=== PATIENT | female | born 1945 | race Caucasian/White ===

== ENCOUNTER 2017-08-12 12:29 | Observation (INO) | payer BC, OTHER ==
[2017-08-12] VITALS (11 sets, daily range): BP systolic 160–228; BP diastolic 77–102; PULSE 64–80; RESP 16–20; TEMP 98–98.7; O2SAT 95–98
[~2017-08-12] VITALS: Ht 167.6 cm; Wt 87.0 kg
[~2017-08-12 12:29] MED LIST: ESTR1 PO; TAB-TAB PO; TOPR50TA PO
[2017-08-12] MEDS ORDERED: LEVE500T8 PO (12:47)
--- NOTE | 2017-08-12 12:53 | PD ---
HPI Chief Complaint: Chest Pain Time Seen by Provider: 12:39 Travel History International Travel<30 days: No Contact w/Intl Traveler<30days: No Traveled to known affect area: No History of Present Illness HPI The patient is a 72-year-old female who presents to the emergency department via private vehicle for shortness of breath and chest pain. The patient notes a 3 day history of shortness of breath with a occasionally productive cough producing yellow to green sputum. She also complains of anterior chest pain, states it feels heavy like there are cinderblocks sitting on her chest. The patient does have a history of bronchitis, was diagnosed recently with COPD, with similar shortness of breath in the past. However, she states the chest pain is new. The patient does have a history of hypertension and hyperlipidemia, denies any known history of coronary artery disease. She does have a remote history of smoking, quit 16 years ago. She denies any history of diabetes. She does have a history of amyloid angiopathy. Symptoms are moderate. The patient does take cholesterol medications, states she is allergic to statins, Niaspan, and aspirin. Patient states she developed hives with aspirin. The patient's primary physician is located in [place], [place]. The patient does have a history of previous stress test, however, those were performed years ago. She denies any recent stress test or cardiac catheterizations. PFSH Past Medical History COPD: Yes Diminished Hearing: No Hypertension: Yes Seizures: Yes Influenza Vaccination: Yes Past Surgical History Genitourinary Surgery: Yes (bladder lift) Hysterectomy: Yes Tonsillectomy: Yes Social History Alcohol Use: Yes (OCC) Tobacco Use: No (quit 16 years ago) Substance Use: No Allergies-Medications (Allergen,Severity, Reaction): Coded Allergies: aspirin (Unverified Allergy, Severe, Hives, 08/12/17) penicillin G (Unverified Allergy, Severe, Hives, 08/12/17) simvastatin (Unverified Allergy, Severe, RASH,HIVES, 08/12/17) ALONG WITH SOME OTHER BLOOD PRESSURE MEDICATION Uncoded Allergies: NIASPAN (Allergy, Severe, RASH, 04/09/09) statins (Allergy, Severe, other, 08/12/17) Red rash, hair falls out Reported Meds & Prescriptions Reported Meds & Active Scripts Active Reported Levetiracetam 500 Mg Tab 500 Mg PO BID Multivitamin (Multivitamins) 1 Tab Tab 1 Tab PO DAILY Toprol Xl (Metoprolol Succinate) 50 Mg Tabcr 50 Mg PO DAILY Estrace (Estradiol) 1 Mg Tab 1 Mg PO DAILY Review of Systems Except as stated in HPI: all other systems reviewed are Neg General / Constitutional: No: Fever, Chills HENT: No: Lightheadedness Cardiovascular: Positive: Chest Pain or Discomfort, Diaphoresis, Dyspnea on exertion Respiratory: Positive: Cough, Shortness of Breath Gastrointestinal: Positive: Nausea, No: Vomiting, Abdominal Pain Musculoskeletal: No: Edema Neurologic: No: Dizziness Physical Exam Narrative GENERAL: Awake, alert, pleasant 72-year-old female who appears her stated age and is in no acute respiratory distress. SKIN: Focused skin assessment warm/dry. HEAD: Atraumatic. Normocephalic. EYES: Pupils equal and round. No scleral icterus. No injection or drainage. ENT: No nasal bleeding or discharge. Mucous membranes pink and moist. NECK: Trachea midline. No JVD. CARDIOVASCULAR: Regular rate and rhythm. No murmur appreciated. Heart rate in the 70s. RESPIRATORY: No accessory muscle use. Few expiratory crackles. GASTROINTESTINAL: Abdomen soft, non-tender, nondistended. MUSCULOSKELETAL: No obvious deformities. No clubbing. No cyanosis. No edema. NEUROLOGICAL: Awake and alert. No obvious cranial nerve deficits. Motor grossly within normal limits. Normal speech. PSYCHIATRIC: Appropriate mood and affect; insight and judgment normal. Data Data Last Documented VS Vital Signs Date Time Temp Pulse Resp B/P (MAP) Pulse Ox O2 Delivery O2 Flow Rate FiO2 08/12/17 13:17 98 Room Air 08/12/17 13:17 18 08/12/17 12:52 64 08/12/17 12:33 98.0 Orders Orders Electrocardiogram (08/12/17 12:48) Ckmb (Isoenzyme) Profile (08/12/17 12:48) Complete Blood Count With Diff (08/12/17 12:48) Comprehensive Metabolic Panel (08/12/17 12:48) Magnesium (Mg) (08/12/17 12:48) Prothrombin Time / Inr (Pt) (08/12/17 12:48) Act Partial Throm Time (Ptt) (08/12/17 12:48) Troponin I (08/12/17 12:48) Lipase (08/12/17 12:48) Ecg Monitoring (08/12/17 12:48) Bilateral Bp Monitoring (08/12/17 12:48) Iv Access Insert/Monitor (08/12/17 12:48) Oximetry (08/12/17 12:48) Oxygen Administration (08/12/17 12:48) Morphine Inj (Morphine Inj) (08/12/17 13:00) Nitroglycerin 2% Oint (Nitroglycerin 2% (08/12/17 13:00) Sodium Chloride 0.9% Flush (Ns Flush) (08/12/17 13:00) Nitroglycerin Sl (Nitrostat Sl) (08/12/17 13:00) Sodium Chlorid 0.9% 500 Ml Inj (Ns 500 M (08/12/17 13:00) Chest, Pa & Lat (08/12/17 12:48) Ondansetron Odt (Zofran Odt) (08/12/17 13:00) Labs Laboratory Tests Test 08/12/17 12:55 White Blood Count 3.4 TH/MM3 Red Blood Count 4.99 MIL/MM3 Hemoglobin 15.1 GM/DL Hematocrit 43.7 % Mean Corpuscular Volume 87.5 FL Mean Corpuscular Hemoglobin 30.2 PG Mean Corpuscular Hemoglobin Concent 34.5 % Red Cell Distribution Width 13.5 % Platelet Count 141 TH/MM3 Mean Platelet Volume 9.6 FL Neutrophils (%) (Auto) 58.0 % Lymphocytes (%) (Auto) 23.8 % Monocytes (%) (Auto) 17.1 % Eosinophils (%) (Auto) 0.5 % Basophils (%) (Auto) 0.6 % Neutrophils # (Auto) 2.0 TH/MM3 Lymphocytes # (Auto) 0.8 TH/MM3 Monocytes # (Auto) 0.6 TH/MM3 Eosinophils # (Auto) 0.0 TH/MM3 Basophils # (Auto) 0.0 TH/MM3 CBC Comment DIFF FINAL Differential Comment Prothrombin Time 10.2 SEC Prothromb Time International Ratio 1.0 RATIO Activated Partial Thromboplast Time 25.9 SEC Blood Urea Nitrogen 12 MG/DL Creatinine 0.69 MG/DL Random Glucose 90 MG/DL Total Protein 7.7 GM/DL Albumin 4.0 GM/DL Calcium Level 9.0 MG/DL Magnesium Level 1.9 MG/DL Alkaline Phosphatase 62 U/L Aspartate Amino Transf (AST/SGOT) 11 U/L Alanine Aminotransferase (ALT/SGPT) 14 U/L Total Bilirubin 0.4 MG/DL Sodium Level 138 MEQ/L Potassium Level 4.1 MEQ/L Chloride Level 101 MEQ/L Carbon Dioxide Level 29.4 MEQ/L Anion Gap 8 MEQ/L Estimat Glomerular Filtration Rate 84 ML/MIN Total Creatine Kinase 44 U/L Troponin I LESS THAN 0.02 NG/ML Lipase 211 U/L MDM Medical Decision Making Medical Screen Exam Complete: Yes Emergency Medical Condition: Yes Medical Record Reviewed: Yes Interpretation(s) EKG reveals normal sinus rhythm with a rate of 65. Inverted T-wave in lead III. Laboratory Tests Test 08/12/17 12:55 White Blood Count 3.4 TH/MM3 Red Blood Count 4.99 MIL/MM3 Hemoglobin 15.1 GM/DL Hematocrit 43.7 % Mean Corpuscular Volume 87.5 FL Mean Corpuscular Hemoglobin 30.2 PG Mean Corpuscular Hemoglobin Concent 34.5 % Red Cell Distribution Width 13.5 % Platelet Count 141 TH/MM3 Mean Platelet Volume 9.6 FL Neutrophils (%) (Auto) 58.0 % Lymphocytes (%) (Auto) 23.8 % Monocytes (%) (Auto) 17.1 % Eosinophils (%) (Auto) 0.5 % Basophils (%) (Auto) 0.6 % Neutrophils # (Auto) 2.0 TH/MM3 Lymphocytes # (Auto) 0.8 TH/MM3 Monocytes # (Auto) 0.6 TH/MM3 Eosinophils # (Auto) 0.0 TH/MM3 Basophils # (Auto) 0.0 TH/MM3 CBC Comment DIFF FINAL Differential Comment Prothrombin Time 10.2 SEC Prothromb Time International Ratio 1.0 RATIO Activated Partial Thromboplast Time 25.9 SEC Blood Urea Nitrogen 12 MG/DL Creatinine 0.69 MG/DL Random Glucose 90 MG/DL Total Protein 7.7 GM/DL Albumin 4.0 GM/DL Calcium Level 9.0 MG/DL Magnesium Level 1.9 MG/DL Alkaline Phosphatase 62 U/L Aspartate Amino Transf (AST/SGOT) 11 U/L Alanine Aminotransferase (ALT/SGPT) 14 U/L Total Bilirubin 0.4 MG/DL Sodium Level 138 MEQ/L Potassium Level 4.1 MEQ/L Chloride Level 101 MEQ/L Carbon Dioxide Level 29.4 MEQ/L Anion Gap 8 MEQ/L Estimat Glomerular Filtration Rate 84 ML/MIN Total Creatine Kinase 44 U/L Troponin I LESS THAN 0.02 NG/ML Lipase 211 U/L Differential Diagnosis Differential diagnosis includes acute coronary syndrome, aortic dissection, pulmonary embolism, pericarditis, myocarditis, esophageal spasm, GERD, pneumonia , bronchitis. Narrative Course IV was established, labs are drawn and sent, and the patient was placed on cardiac telemetry monitoring and continuous pulse oximetry monitoring. EKG was ordered and interpreted. Chest x-ray was obtained. Aspirin was held as the patient does have a history of allergies to aspirin with hives. The patient was administered one nitroglycerin sublingual and then placed on Nitropaste. The patient also was administered morphine and Zofran. The patient's initial troponin was less than 0.02. Chest x-ray is unremarkable. The patient does have a history of COPD but has no significant wheezing currently and the chest pressure is new over the last 3 days. The patient does have risk factors including age, hypertension, and hyperlipidemia. Therefore, patient will be a 23 hour observation to the chest pain center for serial cardiac enzymes and further evaluation by cardiology. Patient may benefit from stress test, if stress test is negative the patient may benefit from outpatient follow-up with pulmonology. The patient agrees and understands. Physician Communication Physician Communication The patient will be a 23 hour observation to the chest pain center for serial cardiac enzymes and further evaluation by cardiology. Diagnosis Primary Impression: Chest pain Qualified Codes: R07.9 - Chest pain, unspecified Admitting Information Admitting Physician Requests: Observation Condition: Stable Claude Pat MD Aug 12, 2017 12:53
[2017-08-12] MEDS ORDERED: MORPHINE SULFATE 4 MG/ML INJ IV PUSH ONE (13:00)
[2017-08-12] MEDS ORDERED: NITROGLYCERIN 0.4 MG SL 25 TABS/BTL SL ONE (13:00)
[2017-08-12] MEDS ORDERED: SODIUM CHLORID 0.9% 500 ML INJ 500 ML IV ONE (13:00)
[2017-08-12] MEDS ORDERED: ONDANSETRON ODT 4 MG TAB PO ONE (13:00)
[2017-08-12] MEDS ORDERED: SODIUM CHLORIDE 0.9% FLUSH 10 ML FLUSH IVF PRN (13:00)
[2017-08-12] MEDS ORDERED: NITROGLYCERIN 2% OINT 1 GM PACKET TOP ONE (13:00)
[2017-08-12 13:15] LABS: BASOPHIL % 0.6 % (0.0-2.0); EOSINOPHIL % 0.5 % (0.0-4.0); HEMATOCRIT 43.7 % (35.0-46.0); HEMOGLOBIN 15.1 GM/DL (11.6-15.3); LYMPH % 23.8 % (9.0-44.0); LYMPHOCYTE # 0.8 TH/MM3 (1.0-4.8); MEAN CELL VOLUME 87.5 FL (80.0-100.0); MEAN CORPUSCULAR HEMOGLOBIN 30.2 PG (27.0-34.0); MEAN CORPUSCULAR HGB CONC 34.5 % (32.0-36.0); MEAN PLATELET VOLUME 9.6 FL (7.0-11.0); MONO % 17.1 % (0.0-8.0); MONOCYTE # 0.6 TH/MM3 (0-0.9); PLATELET COUNT 141 TH/MM3 (150-450); RED BLOOD COUNT 4.99 MIL/MM3 (4.00-5.30); RED CELL DISTRIBUTION WIDTH 13.5 % (11.6-17.2); WHITE BLOOD COUNT 3.4 TH/MM3 (4.0-11.0)
[2017-08-12 13:25] LABS: PROTHROMBIN TIME - PATIENT 10.2 SEC (9.8-11.6)
[2017-08-12 13:36] LABS: ALT (GPT) 14 U/L (10-53); AST (GOT) 11 U/L (15-37); BICARBONATE 29.4 MEQ/L (21.0-32.0); BLOOD UREA NITROGEN 12 MG/DL (7-18); CHLORIDE 101 MEQ/L (98-107); CREATININE 0.69 MG/DL (0.50-1.00); GLOMERULAR FILTRATION RATE 84 ML/MIN (>89); GLUCOSE,RANDOM 90 MG/DL (74-106); MAGNESIUM 1.9 MG/DL (1.5-2.5); SODIUM (NA) 138 MEQ/L (136-145)
[2017-08-12 13:40] LABS: ALKALINE PHOSPHATASE 62 U/L (45-117); TOTAL BILIRUBIN ADULT 0.4 MG/DL (0.2-1.0); TOTAL PROTEIN 7.7 GM/DL (6.4-8.2); TROPONIN I LESS THAN 0.02 NG/ML (0.02-0.05)
--- NOTE | 2017-08-12 14:18 | RADRPT ---
EXAM DATE: 08/12/2017 2:10 PM EDT AGE/SEX: 72 years / Female INDICATIONS: Sporadic coughing episodes for three months with chest pain and pressure midline for tw o days. CLINICAL DATA: This is the patient's initial encounter. Patient reports that signs and symptoms have been present for 2 days and indicates a pain score of 6/10. MEDICAL/SURGICAL HISTORY: None. None. COMPARISON: No prior exams available for comparison. FINDINGS: PA and lateral views of the chest demonstrate the lungs to be symmetrically aerated without evidence of mass, infiltrate or effusion. Mildly tortuous aorta. CONCLUSION: No active disease. Electronically signed by: Marlon Lou MD 08/12/2017 2:17 PM EDT
[2017-08-12] MEDS ORDERED: NITROGLYCERIN 0.4 MG SL 25 TABS/BTL SL PRN (15:30)
[2017-08-12] MEDS ORDERED: ONDANSETRON ODT 4 MG TAB PO PRN (15:30)
[2017-08-12] MEDS ORDERED: ACETAMINOPHEN 500 MG CPLT PO PRN (15:30)
--- NOTE | 2017-08-12 16:03 | HHI.HP ---
HPI Primary Care Physician Dr. Melvin Chief Complaint Chest pressure History of Present Illness 72 year old female with history of retention and hyperlipidemia (statin intolerant) presents the emergency room for further evaluation of chest pressure and cough. Onset 3 days. Location substernal. Characterizes pressure. No radiation. Bilateral jaw and left upper arm discomfort intermittently. Duration constant waxing and waning in intensity. Associated symptoms of dyspnea, headache, and diaphoresis. Denies nausea or vomiting. No precipitating or relieving factors. Endorses feeling "exhausted and winded" walking short distances last 3 days. Productive cough x3 days. Over the last 2 months treated twice with antibiotics and steroids for the same cough. Did not experience chest pressure with past infections, therefore came to ER for further evaluation. Review of Systems General: No fatigue, weakness, fever, chills, or recent illness change. Treated twice with antibiotics and steroids over the last 2 months. Cough improved, returned 3 days ago. Follow appointment with her PCP 5 days and felt fine. HEENT: No FITZPATRICK, no vision changes, no nasal congestion or drainage, no dysphasia, no history of GERD CV: As stated above, continues to have chest pressure currently "mild." Experience "heart pounding" last week. She notified her PCP and is set up to wear a Holter monitor. RESP: Exertional dyspnea walking short distances. Productive cough x3 days, intermittent wheezing. History of "mild COPD." GI: No nausea, vomiting, bowel changes, diarrhea, constipation, pain, distention , melena, or blood in the stool. No unintentional weight gain or weight loss. : No dysuria, urgency, frequency EXT: No lower leg edema, no paraesthesias MS: No discomfort injury, or change in ROM NEURO: Follows with a neurologist, diagnosed with amyloid angiopathy, no change in memory, difficulty with balance, LOC, motor/sensory deficits PSYCH: No anxiety, depression, or suicidal ideation SKIN: No rashes, no concerning lesions Past Family Social History Allergies: Coded Allergies: aspirin (Unverified Allergy, Severe, Hives, 08/12/17) penicillin G (Unverified Allergy, Severe, Hives, 08/12/17) simvastatin (Unverified Allergy, Severe, RASH,HIVES, 08/12/17) ALONG WITH SOME OTHER BLOOD PRESSURE MEDICATION Uncoded Allergies: NIASPAN (Allergy, Severe, RASH, 04/09/09) statins (Allergy, Severe, other, 08/12/17) Red rash, hair falls out Past Medical History Hypertension, hyperlipidemia, COPD, amyloid angiopathy Past Surgical History Hysterectomy, bladder suspension Reported Medications Reported Meds & Active Scripts Active Reported Levetiracetam 500 Mg Tab 500 Mg PO BID Multivitamin (Multivitamins) 1 Tab Tab 1 Tab PO DAILY Toprol Xl (Metoprolol Succinate) 50 Mg Tabcr 50 Mg PO DAILY Estrace (Estradiol) 1 Mg Tab 1 Mg PO DAILY Active Ordered Medications Current Medications Medications (Trade) Dose Ordered Sig/Karlee Route Start Time Stop Time Status Last Admin (NS Flush) 2 ml UNSCH PRN IVF 08/12/17 13:00 08/12/17 13:01 (NS Flush) 2 ml BID IV FLUSH 08/12/17 21:00 (Tylenol) 500 mg Q4H PRN PO 08/12/17 15:30 (Nitrostat Sl) 0.4 mg Q5M PRN SL 08/12/17 15:30 (Zofran Odt) 4 mg Q6H PRN PO 08/12/17 15:30 Family History Noncontributory for early onset cardiovascular disease Social History No known coronary artery disease or diabetes. Known hypertension and hyperlipidemia, unfortunately she is statin intolerant. Former 2 pack/day smoker, quit 15 years ago. Denies any alcohol use. . Retired. Works part-time lifestyle. Past cardiac test Remote stress testing reported be unremarkable. Never required cardiac catheterization. Physical Exam Vital Signs Vital Signs Date Time Temp Pulse Resp B/P (MAP) Pulse Ox O2 Delivery O2 Flow Rate FiO2 08/12/17 13:30 66 17 167/78 (107) 95 Room Air 08/12/17 13:17 98 Room Air 08/12/17 13:17 18 98 Room Air 08/12/17 13:16 98 Room Air 08/12/17 12:52 64 18 228/99 (142) 96 Room Air 08/12/17 12:33 98.0 70 18 222/102 (142) 97 213/93 (133) Physical Exam GENERAL: Alert WN, WD, NAD, pleasant, obese, female HEAD: NC, AT EYES: Sclera clear, conjunctiva without injection, pupils equal and round ENT: Mucous membranes pink and moist CV: RRR, without murmur, rub, gallop, no JVD, S1-S2 no S3-S4. No carotid bruits. Chest wall nontender with palpation. RESP: Clear lungs throughout bilateral, no crackles, wheeze, rhonchi, symmetrical chest rise, nonlabored, able to speak in full sentences ABD: Soft, NT, ND, no masses, positive bowel tones EXT: Pulses +2x4, no dependent edema MS: Normal tone x4 extremities, no obvious deformities, full range of motion NEURO: CN II through CN XII grossly intact, motor strength 5/5 PSYCH: A+O x3, pleasant affect, appropriate speech, mood, insight and judgment SKIN: Normal turgor, normal texture, no lesions, no rashes, brisk cap refill, even hair distribution Laboratory Laboratory Tests Test 08/12/17 12:55 White Blood Count 3.4 Red Blood Count 4.99 Hemoglobin 15.1 Hematocrit 43.7 Mean Corpuscular Volume 87.5 Mean Corpuscular Hemoglobin 30.2 Mean Corpuscular Hemoglobin Concent 34.5 Red Cell Distribution Width 13.5 Platelet Count 141 Mean Platelet Volume 9.6 Neutrophils (%) (Auto) 58.0 Lymphocytes (%) (Auto) 23.8 Monocytes (%) (Auto) 17.1 Eosinophils (%) (Auto) 0.5 Basophils (%) (Auto) 0.6 Neutrophils # (Auto) 2.0 Lymphocytes # (Auto) 0.8 Monocytes # (Auto) 0.6 Eosinophils # (Auto) 0.0 Basophils # (Auto) 0.0 CBC Comment DIFF FINAL Differential Comment Prothrombin Time 10.2 Prothromb Time International Ratio 1.0 Activated Partial Thromboplast Time 25.9 Blood Urea Nitrogen 12 Creatinine 0.69 Random Glucose 90 Total Protein 7.7 Albumin 4.0 Calcium Level 9.0 Magnesium Level 1.9 Alkaline Phosphatase 62 Aspartate Amino Transf (AST/SGOT) 11 Alanine Aminotransferase (ALT/SGPT) 14 Total Bilirubin 0.4 Sodium Level 138 Potassium Level 4.1 Chloride Level 101 Carbon Dioxide Level 29.4 Anion Gap 8 Estimat Glomerular Filtration Rate 84 Total Creatine Kinase 44 Troponin I LESS THAN 0.02 Lipase 211 Result Diagram: 08/12/17 1255 08/12/17 1255 Imaging Last 48 hours Impressions Chest X-Ray 08/12/17 1248 Signed Impressions: CONCLUSION: No active disease. Course EKG NSR, normal axis, no st t segment changes Caprini VTE Risk Assessment Caprini VTE Risk Assessment: Mod/High Risk (score >= 2) Caprini Risk Assessment Model Point Value = 1 Point Value = 2 Point Value = 3 Point Value = 5 Age 41-60 Minor surgery BMI > 25 kg/m2 Swollen legs Varicose veins or History of unexplained or recurrent spontaneous Oral contraceptives or hormone replacement Sepsis (< 1 month) Serious lung disease, including pneumonia (< 1 month) Abnormal pulmonary function Acute myocardial infarction Congestive heart failure (< 1 month) History of inflammatory bowel disease Medical patient at bed rest Age 61-74 Arthroscopic surgery Major open surgery (> 45 min) Laparoscopic surgery (> 45 min) Malignancy Confined to bed (> 72 hours) Immobilizing plaster cast Central venous access Age >= 75 History of VTE Family history of VTE Factor V Leiden Prothrombin [id number] Lupus anticoagulant Anticardiolipin antibodies Elevated serum homocysteine Heparin-induced thrombocytopenia Other congenital or acquired thrombophilia Stroke (< 1 month) Elective arthroplasty Hip, pelvis, or leg fracture Acute spinal cord injury (< 1 month) Prophylaxis Regimen Total Risk Factor Score Risk Level Prophylaxis Regimen 0-1 Low Early ambulation 2 Moderate Order ONE of the following: *Sequential Compression Device (SCD) *Heparin 5000 units SQ BID 3-4 Higher Order ONE of the following medications: *Heparin 5000 units SQ TID *Enoxaparin/Lovenox 40 mg SQ daily (WT < 150 kg, CrCl > 30 mL/min) *Enoxaparin/Lovenox 30 mg SQ daily (WT < 150 kg, CrCl > 10-29 mL/min) *Enoxaparin/Lovenox 30 mg SQ BID (WT < 150 kg, CrCl > 30 mL/min) AND/OR *Sequential Compression Device (SCD) 5 or more Highest Order ONE of the following medications: *Heparin 5000 units SQ TID (Preferred with Epidurals) *Enoxaparin/Lovenox 40 mg SQ daily (WT < 150 kg, CrCl > 30 mL/min) *Enoxaparin/Lovenox 30 mg SQ daily (WT < 150 kg, CrCl > 10-29 mL/min) *Enoxaparin/Lovenox 30 mg SQ BID (WT < 150 kg, CrCl > 30 mL/min) AND *Sequential Compression Device (SCD) Assessment and Plan Assessment and Plan #1 Atypical chest pain-admitted to chest pain center. Rule out ACS with 3 sets of EKGs and cardiac enzymes. Monitor on telemetry overnight. Will be seen and evaluated by Dr. Michael Saxena. Discussed likely chemical stress test in a.m. ACS if ruled out. Patient agreeable plan of care and verbalizes understanding. #2 History of amyloid angiopathy-continue levetiracetam #3 History of hypertension-continue Metoprolol Michelle Rosado Aug 12, 2017 16:03
[2017-08-12 16:53] LABS: TROPONIN I LESS THAN 0.02 NG/ML (0.02-0.05)
[2017-08-12] MEDS ORDERED: HUMIBIDDM PO (17:57)
[2017-08-12] MEDS ORDERED: ESTR1TAB PO (17:57)
[2017-08-12] MEDS ORDERED: NO ITAB PO (17:57)
[2017-08-12] MEDS ORDERED: METO-488 PO (17:57)
[2017-08-12] MEDS: SODIUM CHLORIDE 0.9% FLUSH 10 ML FLUSH IV FLUSH SCH (19:52)
[2017-08-12] MEDS: guaiFENesin E.R. 600 MG TAB PO SCH (19:52)
[2017-08-12] MEDS: levETIRAcetam 500 MG TAB PO SCH (19:52)
[2017-08-12] MEDS: BENZONATATE 100 MG CAP PO PRN (19:52)
[2017-08-12] MEDS ORDERED: cloNIDine HCL 0.1 MG TAB PO PRN (21:00)
[2017-08-12] MEDS ORDERED: METO50TA PO (21:07)
[2017-08-12 21:24] LABS: TROPONIN I LESS THAN 0.02 NG/ML (0.02-0.05)
[2017-08-12] MEDS: METOPROLOL TARTRATE 50 MG TAB PO SCH (22:49)
[2017-08-13] VITALS (13 sets, daily range): BP systolic 122–186; BP diastolic 67–91; PULSE 60–163; RESP 16–24; TEMP 98–98.9; O2SAT 94–97
[2017-08-13] MEDS ORDERED: amLODIPine BESYLATE 5 MG TAB PO ONE (07:15)
--- NOTE | 2017-08-13 08:25 | PD.CARD.PN ---
Subjective Subjective Remarks 72-year-old lady with a complex history of cough and shortness of breath going back over several months she has been followed by her primary care physician treated with antibiotics and steroids and different combinations with no good resolution. Since arriving in the emergency room she has developed a new component of her chest pain described as somewhat like labor pains in that it comes and goes in waves lasting only about 3 minutes but quite severe during the episodes. These have not been associated with EKG changes. She also is hypertensive but this is been better controlled during her admission. She is been previously followed by [facility] but is unsure exactly why that was she had a nuclear stress test but this is a number of years back. Otherwise I am in agreement with the history is documented Patient was reviewed and discussed with nurse practitioner she was seen and examined personally. Objective Medications Current Medications Medications (Trade) Dose Ordered Sig/Karlee Route Start Time Stop Time Status Last Admin (NS Flush) 2 ml UNSCH PRN IVF 08/12/17 13:00 08/12/17 13:01 (NS Flush) 2 ml BID IV FLUSH 08/12/17 21:00 08/12/17 19:52 (Tylenol) 500 mg Q4H PRN PO 08/12/17 15:30 08/12/17 19:52 (Nitrostat Sl) 0.4 mg Q5M PRN SL 08/12/17 15:30 (Zofran Odt) 4 mg Q6H PRN PO 08/12/17 15:30 (Keppra) 500 mg BID PO 08/12/17 21:00 08/12/17 19:52 (Mucinex Er) 600 mg BID PO 08/12/17 21:00 08/12/17 19:52 (Tessalon) 100 mg TID PRN PO 08/12/17 18:45 08/12/17 19:52 (Catapres) 0.1 mg Q6H PRN PO 08/12/17 21:00 (Lopressor) 50 mg BID PO 08/12/17 21:00 08/12/17 22:49 Vital Signs / I&O Vital Signs Date Time Temp Pulse Resp B/P (MAP) Pulse Ox O2 Delivery O2 Flow Rate FiO2 08/13/17 07:31 94 21 08/13/17 07:03 65 08/13/17 04:08 98.6 65 16 186/84 (118) 97 08/13/17 03:35 60 08/13/17 00:44 21 08/13/17 00:02 77 08/12/17 23:36 98.7 64 16 164/82 (109) 95 Manual Cuff/Auscultation 08/12/17 20:58 18 08/12/17 20:02 80 08/12/17 19:49 162/80 (107) 08/12/17 19:14 98.3 74 16 185/77 (113) 95 08/12/17 17:07 Manual Cuff/Auscultation 08/12/17 16:47 160/78 (105) 08/12/17 16:37 74 08/12/17 16:00 98.6 68 20 190/78 (115) 95 08/12/17 13:30 66 17 167/78 (107) 95 Room Air 08/12/17 13:17 98 Room Air 08/12/17 13:17 18 98 Room Air 08/12/17 13:16 98 Room Air 08/12/17 12:52 64 18 228/99 (142) 96 Room Air 08/12/17 12:33 98.0 70 18 222/102 (142) 97 213/93 (133) I/O 08/12/17 08/12/17 08/12/17 08/13/17 08/13/17 08/13/17 07:00 15:00 23:00 07:00 15:00 23:00 # Voids 1 Physical Exam Obese lady having an episode of pain at the time I saw. Systolic blood pressure was 140 and her monitor showed no acute changes. Line neck supple no JVD masses nodes or bruits Chest markedly diminished breath sounds with both inspiratory and expiratory wheezes Cardiovascular PMI was not palpable rhythm was regular no gallops rubs or murmurs were noted Laboratory Laboratory Tests Test 08/12/17 12:55 08/12/17 16:10 08/12/17 19:00 White Blood Count 3.4 TH/MM3 Red Blood Count 4.99 MIL/MM3 Hemoglobin 15.1 GM/DL Hematocrit 43.7 % Mean Corpuscular Volume 87.5 FL Mean Corpuscular Hemoglobin 30.2 PG Mean Corpuscular Hemoglobin Concent 34.5 % Red Cell Distribution Width 13.5 % Platelet Count 141 TH/MM3 Mean Platelet Volume 9.6 FL Neutrophils (%) (Auto) 58.0 % Lymphocytes (%) (Auto) 23.8 % Monocytes (%) (Auto) 17.1 % Eosinophils (%) (Auto) 0.5 % Basophils (%) (Auto) 0.6 % Neutrophils # (Auto) 2.0 TH/MM3 Lymphocytes # (Auto) 0.8 TH/MM3 Monocytes # (Auto) 0.6 TH/MM3 Eosinophils # (Auto) 0.0 TH/MM3 Basophils # (Auto) 0.0 TH/MM3 CBC Comment DIFF FINAL Differential Comment Prothrombin Time 10.2 SEC Prothromb Time International Ratio 1.0 RATIO Activated Partial Thromboplast Time 25.9 SEC Blood Urea Nitrogen 12 MG/DL Creatinine 0.69 MG/DL Random Glucose 90 MG/DL Total Protein 7.7 GM/DL Albumin 4.0 GM/DL Calcium Level 9.0 MG/DL Magnesium Level 1.9 MG/DL Alkaline Phosphatase 62 U/L Aspartate Amino Transf (AST/SGOT) 11 U/L Alanine Aminotransferase (ALT/SGPT) 14 U/L Total Bilirubin 0.4 MG/DL Sodium Level 138 MEQ/L Potassium Level 4.1 MEQ/L Chloride Level 101 MEQ/L Carbon Dioxide Level 29.4 MEQ/L Anion Gap 8 MEQ/L Estimat Glomerular Filtration Rate 84 ML/MIN Total Creatine Kinase 44 U/L 40 U/L 53 U/L Troponin I LESS THAN 0.02 NG/ML LESS THAN 0.02 NG/ML LESS THAN 0.02 NG/ML Lipase 211 U/L Imaging Last 24 hours Impressions Chest X-Ray 08/12/17 1248 Signed Impressions: CONCLUSION: No active disease. Assessment and Plan Assessment and Plan Patient will be ruled out for ACS and when negative will obtain a nuclear stress test. She was also instructed post discharge to request follow-up with a gas attendant in addition to her primary care physician. Code Status Full code Discussed Condition With Discussed with nurse practitioner in the patient Michael Saxena MD Aug 13, 2017 08:25
[2017-08-13] MEDS: SODIUM CHLORIDE 0.9% FLUSH 10 ML FLUSH IV FLUSH SCH ×2 (08:26→20:17)
[2017-08-13] MEDS: levETIRAcetam 500 MG TAB PO SCH ×2 (08:26→20:17)
[2017-08-13] MEDS: guaiFENesin E.R. 600 MG TAB PO SCH ×2 (08:29→20:17)
[2017-08-13] MEDS ORDERED: REGADENOSON INJ 0.4 MG/5 ML SYR IV ONE (11:51)
[2017-08-13] MEDS: METOPROLOL TARTRATE 50 MG TAB PO SCH ×2 (13:10→20:17)
--- NOTE | 2017-08-13 13:36 | PD.CARD.PN ---
Subjective Subjective Remarks Notified by RN patient's heart rate elevated upon returning from [place]where. Monitor heart rate 120-140s. Requested EKG, telemetry appears to be atrial fibrillation rate 150s. Patient ambulating in ch, no acute distress prior to EKG completed. No complaints, chest pain, or dizziness. Objective Medications Current Medications Medications (Trade) Dose Ordered Sig/Karlee Route Start Time Stop Time Status Last Admin (NS Flush) 2 ml UNSCH PRN IVF 08/12/17 13:00 08/12/17 13:01 (NS Flush) 2 ml BID IV FLUSH 08/12/17 21:00 08/13/17 08:26 (Tylenol) 500 mg Q4H PRN PO 08/12/17 15:30 08/12/17 19:52 (Nitrostat Sl) 0.4 mg Q5M PRN SL 08/12/17 15:30 (Zofran Odt) 4 mg Q6H PRN PO 08/12/17 15:30 (Keppra) 500 mg BID PO 08/12/17 21:00 08/13/17 08:26 (Mucinex Er) 600 mg BID PO 08/12/17 21:00 08/13/17 08:29 (Tessalon) 100 mg TID PRN PO 08/12/17 18:45 08/12/17 19:52 (Catapres) 0.1 mg Q6H PRN PO 08/12/17 21:00 (Lopressor) 50 mg BID PO 08/12/17 21:00 08/13/17 13:10 Vital Signs / I&O Vital Signs Date Time Temp Pulse Resp B/P (MAP) Pulse Ox O2 Delivery O2 Flow Rate FiO2 08/13/17 13:26 153 18 122/79 (93) 08/13/17 13:01 98.3 127 24 142/91 (108) 94 08/13/17 08:00 98.9 72 17 140/80 (100) 94 Automatic Cuff 08/13/17 07:31 94 21 08/13/17 07:03 65 08/13/17 04:08 98.6 65 16 186/84 (118) 97 08/13/17 03:35 60 08/13/17 00:44 21 08/13/17 00:02 77 08/12/17 23:36 98.7 64 16 164/82 (109) 95 Manual Cuff/Auscultation 08/12/17 20:58 18 08/12/17 20:02 80 08/12/17 19:49 162/80 (107) 08/12/17 19:14 98.3 74 16 185/77 (113) 95 08/12/17 17:07 Manual Cuff/Auscultation 08/12/17 16:47 160/78 (105) 08/12/17 16:37 74 08/12/17 16:00 98.6 68 20 190/78 (115) 95 08/12/17 13:30 66 17 167/78 (107) 95 Room Air I/O 08/12/17 08/12/17 08/12/17 08/13/17 08/13/17 08/13/17 07:00 15:00 23:00 07:00 15:00 23:00 # Voids 1 Physical Exam GENERAL: Alert WN, WD, NAD, pleasant, moderately obese, female ambulating well. HEAD: NC, AT CV: Rapid irregular heart rate. RESP: Clear lungs throughout bilateral, no crackles, wheeze, rhonchi, symmetrical chest rise, nonlabored, able to speak in full sentences MS: Normal tone x4 extremities, full range of motion NEURO: CN II through CN XII grossly intact, motor strength 5/5, gait WNL PSYCH: A+O x3, pleasant affect, appropriate speech, appropriate mood and affect , insight and judgment SKIN: Normal turgor, normal texture Laboratory Laboratory Tests Test 08/12/17 16:10 08/12/17 19:00 08/13/17 10:15 Total Creatine Kinase 40 U/L 53 U/L Troponin I LESS THAN 0.02 NG/ML LESS THAN 0.02 NG/ML Erythrocyte Sedimentation Rate 19 mm/hr Assessment and Plan Assessment and Plan Stat EKG reviewed, Atrial fibrillation with RVR. Metoprolol 50 mg oral previously given minutes prior to EKG, will continue to monitor. EKG reviewed with Dr. Saxena. Plans to admit to hospitalist for new onset afib. Michelle Rosado Aug 13, 2017 13:36
--- NOTE | 2017-08-13 13:53 | EKG ---
Date Performed: 08/12/2017 Time Performed: 12:45:42 PTAGE: 72 years EKG: Sinus rhythm POSSIBLE LEFT ATRIAL ENLARGEMENT BORDERLINE ECG NO PREVIOUS TRACING DOCTOR: Michael Saxena Interpretating Date/Time 08/13/2017 13:46:12
--- NOTE | 2017-08-13 14:07 | RADRPT ---
EXAM DATE: 08/13/2017 1:47 PM EDT AGE/SEX: 72 years / Female INDICATIONS:Angina. . Chest pain. CLINICAL DATA: This is the patient's initial encounter. Patient reports that signs and symptoms have been present for 1 day and indicates a pain score of 0/10. MEDICAL/SURGICAL HISTORY: Hypertension. Chronic obstructive pulmonary disease. Hypercholester olemia. Hysterectomy. COMPARISON: No prior exams available for comparison. DOSE: 8.5 mCi Tc 99m Myoview at rest 27.3 mCi [id number] at stress 0.4 mg Lexiscan STRESS SYMPTOMS: Dyspnea. EJECTION FRACTION: 59 % TECHNIQUE: The patient underwent pharmacologic stress with infusion of prescribed dose. Continuous ECG tracing was monitored during stress. Gated SPECT imaging was performed after stress and conventi onal SPECT imaging was performed at rest. The examination was performed on a SPECT/CT scanner, both attenuation and non-corrected datasets were reviewed. FINDINGS: Distribution: The maximum perfused segment at stress is in the septal wall. Perfusion Study: The pattern of perfusion at stress is within normal limits, with regional variatio ns perfusion within 35%. On the attenuation corrected dataset, there is a changed in degree of uptake in the inferior segments which is not confirmed on the nonattenuation corrected images. This probabl y artifactual in origin. Gated Study: There are intact wall motion and wall thickening without hypokinetic or dyskinetic segm ents. The ejection fraction is calculated at 59%. RISK CATEGORY: Low (<1% Annual Motality Rate) CONCLUSION: 1. No evidence of stress-induced ischemia. Probable artifactual decrease in stress activity in the i nferior segments which is not confirmed on the nonattenuation corrected dataset. 2. Intact wall motion with 59% ejection fraction. Electronically signed by: Ehsan Yadav MD 08/13/2017 2:06 PM EDT
--- NOTE | 2017-08-13 14:41 | HHI.PR ---
Subjective Remarks Patient seen and examined. Patient admitted to the chest pain center. She underwent nuclear stress test and later went into Afib with RVR. Patient have since converted back to sinus rhythm after receiving her regular dose of metoprolol. Hospitalist service consulted to assume care. Objective Vitals Vital Signs Date Time Temp Pulse Resp B/P (MAP) Pulse Ox O2 Delivery O2 Flow Rate FiO2 08/13/17 13:26 153 18 122/79 (93) 08/13/17 13:01 98.3 127 24 142/91 (108) 94 08/13/17 08:00 98.9 72 17 140/80 (100) 94 Automatic Cuff 08/13/17 07:31 94 21 08/13/17 07:03 65 08/13/17 04:08 98.6 65 16 186/84 (118) 97 08/13/17 03:35 60 08/13/17 00:44 21 08/13/17 00:02 77 08/12/17 23:36 98.7 64 16 164/82 (109) 95 Manual Cuff/Auscultation 08/12/17 20:58 18 08/12/17 20:02 80 08/12/17 19:49 162/80 (107) 08/12/17 19:14 98.3 74 16 185/77 (113) 95 08/12/17 17:07 Manual Cuff/Auscultation 08/12/17 16:47 160/78 (105) 08/12/17 16:37 74 08/12/17 16:00 98.6 68 20 190/78 (115) 95 I/O 08/12/17 08/12/17 08/12/17 08/13/17 08/13/17 08/13/17 07:00 15:00 23:00 07:00 15:00 23:00 # Voids 1 Result Diagram: 08/12/17 1255 08/12/17 1255 Objective Remarks GENERAL: This is a well-nourished, well-developed patient, in no apparent distress. CARDIOVASCULAR: Normal rate and regular rhythm without murmurs, gallops, or rubs. RESPIRATORY: Good respiratory efforts. Breath sounds equal and clear to auscultation bilaterally. GASTROINTESTINAL: Abdomen soft, non-tender, non-distended. Normal active bowel sounds MUSCULOSKELETAL: Extremities without cyanosis, or edema. NEURO: Alert & Oriented x4 to person, place, time, situation. Moves all ext x4 PSYCH: Appropriate mood and affect. A/P Problem List: (1) Chest pain ICD Code: R07.9 - Chest pain, unspecified Status: Acute Plan: Patient underwent nuclear stress test. Results currently pending. Cardiology consulted for new onset atrial fibrillation with RVR. (2) Atrial fibrillation with RVR ICD Code: I48.91 - Unspecified atrial fibrillation Plan: She went into A. fib with RVR after the nuclear stress test. Have since converted back to sinus rhythm after restarted metoprolol. She denies any history of A. fib but noted she has had heart palpitations in the past. Consult cardiology. She may warrant further ischemic workup. Continue metoprolol 50 mg twice daily. Monitor on telemetry. (3) Cough ICD Code: R05 - Cough Plan: Chest x-ray is normal. No other indication this is a systemic bacterial infection. Likely viral. Symptoms have been present for about 4 days and has not gotten worse. Continue to monitor. Tessalon Perles as needed. Patient does have a history of smoking for about 50 years. She quit 12 years ago. May benefit from outpatient follow-up with pulmonology and PFT testing. She may have COPD. Problem Qualifiers (1) Chest pain: Qualified Codes: R07.9 - Chest pain, unspecified Joana Franks MD Aug 13, 2017 14:41
[2017-08-13] MEDS: BENZONATATE 100 MG CAP PO PRN (15:02)
[2017-08-14 03:02] VITALS: PULSE 60
[2017-08-14 04:20] VITALS: BP_SYST 152; BP_SYST 182; BP_DIAS 84; BP_DIAS 90; PULSE 63; RESP 16; TEMP 98.3; O2SAT 94
[2017-08-14] MEDS: BENZONATATE 100 MG CAP PO PRN (05:58)
[2017-08-14 07:39] VITALS: PULSE 60
[2017-08-14 08:51] VITALS: BP 178/80; PULSE 67; RESP 18; TEMP 98.7; O2SAT 94
--- NOTE | 2017-08-14 08:59 | MB ---
cc: Jameson Bower MD DATE: 08/14/2017 REASON FOR CONSULTATION: Atrial fibrillation. HISTORY OF PRESENT ILLNESS: The patient is a 72-year-old white female with a history of hypertension, cerebral amyloid angiopathy who presented to the emergency department with chest pain and shortness of breath. The patient states 3 months ago, she had troubles with "bronchitis", treated effectively with antibiotics. However, a month later, the symptoms recurred with increased shortness of breath and nonproductive cough. She was given antibiotics and steroids at that time with gradual decrease in her symptoms. However, 2 days ago, she developed a fairly severe substernal chest pressure with increased shortness of breath. The chest discomfort was constant for at least 48 hours. She denies pleurisy, dizziness, syncope, near syncope, pedal edema, and paroxysmal nocturnal dyspnea. Chronically she has intermittent fluttering, palpitations, which never last more than a few seconds. Yesterday, the patient underwent a nuclear stress test and shortly thereafter developed atrial fibrillation with a rapid ventricular response. PAST MEDICAL HISTORY: 1. Hypertension. 2. Cerebral amyloid angiopathy. CARDIAC MEDICATIONS AT HOME: Toprol-XL 50 mg daily. ALLERGIES: 1. ASPIRIN. 2. PENICILLIN. 3. SIMVASTATIN. 4. STATINS. 5. NIASPAN. FAMILY HISTORY: There is no significant family history of early myocardial infarction. SOCIAL HISTORY: The patient quit smoking 16 years ago. She drinks occasional alcohol. REVIEW OF SYSTEMS: As in history of present illness, otherwise negative or noncontributory. She also denies headache, abdominal pain, melena, dyspepsia, bright red blood per rectum, cough, and fevers. PHYSICAL EXAMINATION: VITAL SIGNS: Her blood pressure 152/90 with a pulse of 63, respirations 16. GENERAL: She is a well-developed, well-nourished white female, in no acute distress. NECK: Jugular venous pressure is normal. Carotid pulses are 2+ bilaterally and without bruits. CHEST: Reveals clear lungs knight. CARDIAC: She has a regular rhythm and rate without S3, S4, or murmur. ABDOMEN: She has a soft, nontender abdomen. Bowel sounds are present. There is no definite hepatosplenomegaly. EXTREMITIES: Reveals no clubbing, cyanosis or edema. DIAGNOSTIC STUDIES: EKG from 08/13/2017 at 8:59 a.m. shows normal sinus rhythm, normal EKG. Laboratory data includes WBC 3.4, hemoglobin 15.1, platelets 141. Potassium 4.1, BUN 12, creatinine 0.69. Negative cardiac enzymes. INR 1.0. Chest x-ray shows no acute disease. IMPRESSION: Paroxysmal atrial fibrillation, atypical chest pain in a 72-year-old white female with a history of hypertension, cerebral amyloid angiopathy. Despite prolonged chest discomfort for 2 days prior to admission, cardiac enzymes are negative for myocardial infarction. EKGs are normal. Her nuclear stress test shows no evidence for ischemia. She did have paroxysmal atrial fibrillation after her nuclear stress test. She has had intermittent palpitations chronically. The etiology of her atrial fibrillation may be hypertension. With respect to her thromboembolic risk, it is probably moderately elevated with her age and history of hypertension. RECOMMENDATIONS: 1. Continue beta geri therapy. 2. Optimize her blood pressure control; add amlodipine. 3. Consult Neurology. Ideally, she needs to be treated with anticoagulation therapy. However, there is an increased risk of hemorrhagic stroke with cerebral amyloid angiopathy. She also is aspirin allergic. MD ESTRELLA Soriano/DIANE , 08:42 AM , 08:57 AM FRED
[2017-08-14] MEDS ORDERED: AMIODARONE 200 MG TAB PO SCH (09:00)
[2017-08-14] MEDS: guaiFENesin E.R. 600 MG TAB PO SCH (09:13)
[2017-08-14] MEDS: levETIRAcetam 500 MG TAB PO SCH (09:13)
[2017-08-14] MEDS: SODIUM CHLORIDE 0.9% FLUSH 10 ML FLUSH IV FLUSH SCH (09:14)
[2017-08-14] MEDS: METOPROLOL TARTRATE 50 MG TAB PO SCH (09:14)
[2017-08-14 11:35] VITALS: PULSE 61
--- NOTE | 2017-08-14 12:12 | HHI.DCPOC ---
Discharge Care Plan Diagnosis: (1) Atrial fibrillation with RVR (2) Cough Additional Problems See your PCP or bag shaker within a week to ensure your coumadin level is at the desired target goal. Goals to Promote Your Health * To prevent worsening of your condition and complications * To maintain your health at the optimal level Directions to Meet Your Goals Take your medications as prescribed Follow your dietary instruction Follow activity as directed Keep your appointments as scheduled Take your immunizations and boosters as scheduled If your symptoms worsen call your PCP, if no PCP go to Urgent Care Center or Emergency Room Smoking is Dangerous to Your Health. Avoid second hand smoke Call the 24-hour hour crisis hotline for domestic abuse at Regulo Ibrahim MD Aug 14, 2017 12:12
[2017-08-14] MEDS ORDERED: AMLO5 PO (12:13)
[2017-08-14] MEDS ORDERED: PROT40TA PO (12:34)
[2017-08-14] MEDS ORDERED: ALBUAER3 INH ×2 (12:36→13:54)
[2017-08-14] MEDS ORDERED: PANTOPRAZOLE SOD 40 MG DELAYED RELEASE TAB PO ONE (12:45)
--- NOTE | 2017-08-14 13:28 | RADRPT ---
EXAM DATE: 08/14/2017 1:24 PM EDT AGE/SEX: 72 years / Female INDICATIONS: Cephalgia today. CLINICAL DATA: This is the patient's initial encounter. Patient reports that signs and symptoms have been present for 1 day and indicates a pain score of 5/10. MEDICAL/SURGICAL HISTORY: Hypertension. Chronic obstructive pulmonary disease. Hysterectomy. RADIATION DOSE: 56.35 CTDI (mGy) COMPARISON: No prior exams available for comparison. TECHNIQUE: CT of the head without contrast. Using automated exposure control and adjustment of the mA and/or kV according to patient size, radiation dose was kept as low as reasonably achievable to ob tain optimal diagnostic quality images. FINDINGS: Cerebrum: The ventricles are normal for age. There is decreased density seen throughout the cerebra l white matter. No evidence of midline shift, mass lesion, hemorrhage or acute infarction. No extraa xial fluid collections are seen. Posterior Fossa: The cerebellum and brainstem are intact. The 4th ventricle is midline. The cerebe llopontine angle is unremarkable. Extracranial: The visualized portion of the orbits is intact. There is sphenoid sinus disease. The s phenoid sinus are asymmetric with the right sphenoid sinus being larger than the left sphenoid sinus. Skull: The calvaria is intact. No evidence of skull fracture. CONCLUSION: 1. No acute intracranial abnormalities seen. 2. Widespread decreased density seen throughout the cerebral white matter likely related to small ve ssel ischemic demyelination. 3. Sphenoid sinus disease. Electronically signed by: Chuck Gonzalez MD 08/14/2017 1:27 PM EDT
[2017-08-14 13:41] VITALS: BP 160/80; PULSE 58; RESP 15; TEMP 97.7; O2SAT 95
[2017-08-14] MEDS ORDERED: AMIO200T PO (13:44)
[2017-08-14] MEDS ORDERED: COUM5TAB PO (13:48)
--- NOTE | 2017-08-14 13:53 | HHI.PR ---
Subjective Remarks Patient reports having a mucousy cough this been going on for the past few months. Denies taking any acid reflux medication. Does lifelong history of smoking up until some years ago. Objective Vital Signs Date Time Temp Pulse Resp B/P (MAP) Pulse Ox O2 Delivery O2 Flow Rate FiO2 08/14/17 13:41 97.7 58 15 160/80 (106) 95 08/14/17 11:35 61 08/14/17 08:51 98.7 67 18 178/80 (112) 94 08/14/17 07:39 60 08/14/17 04:20 98.3 63 16 152/90 (110) 94 08/14/17 03:02 60 08/13/17 23:14 98.1 62 16 158/74 (102) 94 08/13/17 20:42 71 08/13/17 20:13 98.1 74 17 168/86 (113) 96 08/13/17 16:00 98.0 74 18 122/67 (85) 94 08/13/17 16:00 75 I/O 08/13/17 08/13/17 08/13/17 08/14/17 08/14/17 08/14/17 07:00 15:00 23:00 07:00 15:00 23:00 Intake Total 800 ml Balance 800 ml Intake Oral 800 ml # Voids 8 1 # Bowel Movements 0 Result Diagram: 08/12/17 1255 08/12/17 1255 Objective Remarks Heart sounds now are regular rate rhythm Unlabored breathing, clear lungs bilaterally, A/P Assessment and Plan Patient's A. fib is now stabilized, has modified her rhythm is now normal. Discussed with neurology, patient stable for anticoagulation for A. fib as the risk of stroke is greater than hemorrhagic stroke from her cerebral amyloid angiopathy (per neurology opinion). Therefore cardiology has recommended anticoagulation as well as amiodarone. To follow-up closely with cardiology and neurology outpatient. Pharmacy verified that Eliquis reversal agent is not available on market at this time, will proceed w/ coumadin. Regarding the patient's now chronic cough, chest x-ray is unremarkable and her lungs are clear today. Explain to the patient she likely may have chronic acid reflux disease and/or chronic bronchitis as she does have a lifelong history of smoking of which she quit some years ago. Explained to her that she may get some PFT testing done or see either a filling station equipment mechanic or ENT physician at the clinic. recommended albuterol inhaler scheduled daily and as as needed. Patient has met maximal benefit from hospitalization and is clinically stable for discharge. Regulo Ibrahim MD Aug 14, 2017 13:53
[2017-08-14] MEDS ORDERED: BENZ100 PO (15:18)
--- NOTE | 2017-08-14 15:31 | EKG ---
Date Performed: 08/13/2017 Time Performed: 08:59:18 PTAGE: 72 years EKG: Sinus rhythm NORMAL ECG INTERPRETATION BASED ON A DEFAULT AGE OF 42 YEARS NO PREVIOUS TRACING DOCTOR: John Paul Chandler Interpretating Date/Time 08/14/2017 15:30:10
--- NOTE | 2017-08-14 15:31 | EKG ---
Date Performed: 08/13/2017 Time Performed: 13:21:41 PTAGE: 72 years EKG: ATRIAL FIBRILLATION WITH RAPID VENTRICULAR RESPONSE ST DEVIATION AND MODERATE T-WAVE ABNORM ALITY, CONSIDER INFERIOR ISCHEMIA ABNORMAL ECG INTERPRETATION BASED ON A DEFAULT AGE OF 42 YEARS PREVIOUS TRACING : 08/12/2017 19.10 Since previous tracing, a fib with rvr is new. Non-sp ecific st changes are now noted DOCTOR: John Paul Chandler Interpretating Date/Time 08/14/2017 15:30:03
--- NOTE | 2017-08-14 15:32 | EKG ---
Date Performed: 08/12/2017 Time Performed: 16:40:10 PTAGE: 72 years EKG: Sinus rhythm WITH OCCASIONAL SUPRAVENTRICULAR PREMATURE COMPLEXES POSSIBLE LEFT ATRIAL ENLARGEMENT BORDERLINE ECG PREVIOUS TRACING : 08/12/2017 12.45 Since previous tracing, no significant change noted DOCTOR: John Paul Chandler Interpretating Date/Time 08/14/2017 15:31:45
--- NOTE | 2017-08-14 15:32 | MB ---
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 She has never had a cerebral hemorrhage by her history. The diagnosis was made when she developed some intermittent episodes of slurring of her speech. Never had a completed stroke. She is now admitted with new onset atrial fibrillation and anticoagulation has been recommended. Neurology is asked to see the patient regarding the risks of anticoagulation with her history of congophilic angiopathy. PAST MEDICAL HISTORY: History of congophilic angiopathy, hypertension. ALLERGIES: ASPIRIN, PENICILLIN, SIMVASTATIN, STATINS, NIASPAN. PHYSICAL EXAMINATION: VITAL SIGNS: Her blood pressure is 160/80, pulse 58, respiratory rate is 15, temperature is 97.7 degrees Fahrenheit. NEUROLOGIC: Higher cortical functions are normal, including speech. Cranial nerves 2-12 are normal. Motor exam is 5/5 strength of all groups. There is no drift. Reflexes are symmetric. The patient had a CT of the brain done today showing ischemic demyelination. No signs of hemorrhage. No acute change present. LABORATORY DATA: The white count is 3400, hemoglobin 15, hematocrit 43%, platelets 141,000. Sedimentation rate is 19. Sodium is 138, potassium 4.1, chloride 101, CO2 of 29.4, BUN is 12, creatinine 0.69, GFR is 84, ALT 14, AST 11. IMPRESSION: History of congophilic angiopathy. While there is an increased risk of hemorrhage given her diagnosis of congophilic angiopathy, I feel the risk of stroke given the atrial fibrillation is greater and therefore justifies the risk of anticoagulation. PLAN: I discussed this with the patient. The CT shows no sign of acute hemorrhage. Therefore, I would recommend proceeding with anticoagulant therapy in this case. Alexei Aaron MD, PhD JAIME/TL , 01:45 PM , 03:31 PM
--- NOTE | 2017-08-14 15:32 | EKG ---
Date Performed: 08/12/2017 Time Performed: 19:10:50 PTAGE: 72 years EKG: Sinus rhythm WITH OCCASIONAL SUPRAVENTRICULAR PREMATURE COMPLEXES NONSPECIFIC ST & T-WAVE ABNORMALITY BORDERLINE ECG PREVIOUS TRACING : 08/12/2017 16.40 Since previous tracing, st6 changes are more prominent DOCTOR: John Paul Chandler Interpretating Date/Time 08/14/2017 15:31:18
--- NOTE | 2017-08-14 15:39 | TR ---
Date Performed: 08/13/2017 Time Performed: 11:38:57 DOCTOR: John Paul Chandler DRUG LIST: CLINICAL HISTORY: REASON FOR TEST: REASON FOR ENDING: OBSERVATION: CONCLUSION: COMMENTS: Lexiscan stress test was performed under standard four minute protocol. Radionuclide was injected one minute prior to ending the test. No electrocardiographic abormalities were present t o suggest ischemia. Nuclear imaging and interpretation are pending.
[2017-08-14] MEDS ORDERED: amLODIPine BESYLATE 5 MG TAB PO SCH (18:00)
== END 2017-08-14 16:08 | disposition home or self-care (01) ==
LOC: NEPC 12:29 → NEDA 14:41 → NEPFCDU 16:07
PROVIDERS: ADMIT Hospitalist; ATTEND Hospitalist
DX: I48.0 Paroxysmal atrial fibrillation (principal); R05 Cough; R07.89 Other chest pain; E85.89 Other amyloidosis; I68.0 Cerebral amyloid angiopathy; R47.81 Slurred speech; I10 Essential (primary) hypertension; R06.02 Shortness of breath; R00.2 Palpitations; J44.9 Chronic obstructive pulmonary disease, unspecified; E78.00 Pure hypercholesterolemia, unspecified; Z87.891 Personal history of nicotine dependence; R56.9 Unspecified convulsions
CPT/HCPCS: 70450; 71046; 78452; 80053; 82550; 83690; 83735; 84484; 85025; 85610; 85652; 85730; 93005; 93017; 96361; 96374; 99285; A9502; G0378; J2270; J2785; J7040